=== PATIENT | female | born 1980 | race Two or more races ===

== ENCOUNTER 2019-11-11 10:50 | Outpatient (NON) | payer BC, SELFPAY ==
[2019-11-11 23:03] LABS: SARS-CoV-2 RNA PCR Negative
== END 2019-11-11 10:51 ==
PROVIDERS: PCP Family Medicine; Visit Provider Family Medicine
DX: R50.9 Fever, unspecified (principal); Z20.828 Contact with and (suspected) exposure to other viral communicable diseases
CPT/HCPCS: 87635; C9803; U0003

== ENCOUNTER 2021-03-03 07:46 | Outpatient (CLI) | payer BC, SELFPAY ==
--- NOTE | ~2021-03-03 | MM_ITS ---
EXAMINATION: MM screening marianne BI w juanito HISTORY: Screening mammogram TECHNIQUE: Craniocaudal and mediolateral oblique 3-D tomosynthesis images were obtained and synthetic 2-D images were generated. Bilateral rotated lateral cc views. CAD analysis was submitted and interp reted. COMPARISON: No prior mammogram is available for comparison at this institution. BREAST PARENCHYMAL COMPOSITION: The breasts are almost entirely fatty. FINDINGS: There is no evidence of suspicious mass, calcification, or architectural distortion to sugg est malignancy in either breast. There has been no suspicious interval change. IMPRESSION: 1. No mammographic evidence of malignancy. 2. Recommend routine screening mammography in one year. BI-RADS Category 1: Negative Reviewed, dictated and finalized at location A.
== END 2021-03-03 07:47 | disposition home or self-care (01) ==
LOC: ANHIMG 07:47
PROVIDERS: PCP Family Medicine; Visit Provider Family Medicine
DX: Z12.31 Encounter for screening mammogram for malignant neoplasm of breast (principal)
CPT/HCPCS: 77063; 77067

== ENCOUNTER 2021-06-15 15:17 | Emergency (ER) | payer BC, SELFPAY ==
--- NOTE | ~2021-06-15 | US_ITS ---
EXAMINATION: US venous doppler [facility] EXAM DATE: 06/15/2021 17:56 INDICATION: Left leg pain. TECHNIQUE: Multiple grayscale, color flow and Doppler images of the left lower extremity deep venous system were obtained and reviewed. There is no prior study for comparison. FINDINGS: The left common femoral, femoral and profunda veins demonstrate normal color flow, respirat ory variation, augmentation and compressibility. Compressibility, color flow confirmed within the le ft popliteal, posterior tibial, peroneal, and greater saphenous veins. IMPRESSION: 1. No left lower extremity deep venous thrombosis. Reviewed, dictated and finalized at location G. ONS ADVISOR
--- NOTE | ~2021-06-15 | XR_ITS ---
EXAMINATION: XR knee LT 3V EXAM DATE: 06/15/2021 18:03 INDICATION: Injury 2 weeks ago left calf pain posteriorly. TECHNIQUE: Three projections of the left knee. There is no prior study for comparison. FINDINGS: No evidence osteochondral defect or joint body in the left knee joint. There are no acute fractures or dislocations identified. There is no subcutaneous gas. The soft tissue is unremarkabl e. There are no radiopaque foreign bodies. IMPRESSION: 1. Unremarkable XR knee LT 3V exam. Reviewed, dictated and finalized at location G. TUTOR
[2021-06-15 15:29] VITALS: BP 156/116; PULSE 108; RESP 18; TEMP 37.3; O2SAT 97
--- NOTE | 2021-06-15 18:02 | PC.NURSE ---
Pt at testing a this time.
[2021-06-15] MEDS: HYDROcodone/acetaminophen (*CRX) 5-325 MG TABLET 1 TAB PO (18:06)
--- NOTE | 2021-06-15 18:26 | ED.GENADULT ---
HPI - General Adult General Chief complaint: Extremity Injury, Lower Stated complaint: Left Leg Pain Time Seen by Provider: 06/15/21 16:59 Source: patient, family and RN notes reviewed Mode of arrival: ambulatory Limitations: no limitations History of Present Illness HPI narrative: Patient is a 41-year-old female who presents to emergency department for evaluation of posterior left knee pain calf pain that 9 days ago began with pain patient notes that the pain began after she had landed awkwardly on the leg. Pain began as a cramping pain to the posterior aspect of the knee and calf region which has been present off and on she saw her primary care for this and is scheduled for MRI tomorrow she presents today concerned about possible blood clot with increasing pain today worse with weightbearing and activity. Denies radicular symptoms or paresthesias presents nondistressed Related Data Allergies Allergy/AdvReac Type Severity Reaction Status Date / Time amoxicillin Allergy Panic Verified 06/07/21 10:00 attacks NSAIDS (Non-Steroidal Allergy Swelling Verified 06/07/21 10:00 Anti-Inflamma Review of Systems Review of Systems: All systems reviewed & are unremarkable except as noted in HPI and below PMFSH Past Medical History Medical History HELLP (hemolytic anemia/elev liver enzymes/low platelets in ) 2012 Family History Family History Father Kidney disease Heart disease FHx: cancer of prostate Mother Hypothyroidism Social History Social History Alcohol intake: current Substance use: never Gender identity (if verbalized by the patient): Female Exam Narrative: GENERAL: Well-appearing, well-nourished, and in no acute distress. HEAD: Normocephalic, atraumatic. EYES: PERRLA and EOMI. ENT: Nares clear, no rhinorrhea or epistaxis. Mucous membranes moist. CHEST: Clear to auscultation. No respiratory distress. No wheezes rales or rhonchi HEART: Regular rate and rhythm. No murmur heard. Normal peripheral pulses. EXTREMITIES: Normal range of motion. No edema. Tenderness of the posterior aspect of the left knee and calf where there is slight swelling on the lateral aspect of the calf remainder of extremity nontender no deformity SKIN: Warm, dry, no rash. NEURO: No focal deficits. Alert and oriented x3. Neurovascularly intact. Capillary refill less than 2 seconds PSYCH: Normal mood and affect. Course Course Emergency Course: Patient presented was evaluated negative ultrasound negative x-ray imaging will have MRI tomorrow patient is afebrile nontoxic-appearing nondistressed no signs of neurovascular compromise compartment tissues are soft ABCs and vital signs intact and stable patient aware of case findings treatment plan and diagnosis she will be discharged with Saud wrap and crutches Vital Signs Vital signs: Vital Signs Temperature 99.2 F 06/15/21 15:29 Pulse Rate 108 H 06/15/21 15:29 Respiratory Rate 18 06/15/21 15:29 Blood Pressure 156/116 H 06/15/21 15:29 Pulse Oximetry 97 06/15/21 15:29 Temperature 99.2 F 06/15/21 15:29 Pulse Rate 108 H 06/15/21 15:29 Respiratory Rate 18 06/15/21 15:29 Blood Pressure 156/116 H 06/15/21 15:29 Pulse Oximetry 97 06/15/21 15:29 Medical Decision Making MDM Narrative Medical decision making narrative: Patients injury or pain is consistent with musculoskeletal etiology. No signs of neurological or vascular compromise on exam. Compartments and tisues are soft without signs of compartment syndrome. Pain is felt appropriate for further evaluation on an outpatient basis. Vital Signs Vital Signs: Vital Signs Temperature 99.2 F 06/15/21 15:29 Pulse Rate 108 H 06/15/21 15:29 Respiratory Rate 18 06/15/21 15:29 Blood Pressure 156/116 H 06/15/21 15:29 Puls
[2021-06-15 18:50] VITALS: BP 150/104; PULSE 100; RESP 16; O2SAT 97
== END 2021-06-15 18:50 | disposition home or self-care (01) ==
PROVIDERS: Emergency Provider Emergency Medicine; PCP Family Medicine
DX: M79.662 Pain in left lower leg (principal)
CPT/HCPCS: 73562; 93971; 99284; A9270

== ENCOUNTER 2021-06-16 06:50 | Outpatient (CLI) | payer BC, SELFPAY ==
--- NOTE | ~2021-06-16 | MR_ITS ---
EXAMINATION: MR knee LT wo con DATE: 06/16/2021 08:21 INDICATION: Unspecified strain of muscle and tendon presenting with 2 weeks of posterior left knee an d calf pain. TECHNIQUE: Magnetic resonance imaging (MRI) of the left knee was performed without intravenous contra st. Sequences included coronal PD-weighted FSE, coronal PD-weighted FS FSE, sagittal T2-weighted FSE , sagittal PD-weighted FS FSE and axial PD weighted fat saturated FSE. COMPARISON: None. FINDINGS: Medial compartment: Medial meniscus is normal. Small region of partial-thickness chondral fissuring at the medial tibial plateau along the base of the intercondylar eminence. Mild partial-thickness cartilage loss with subc hondral surface regularity at the central weightbearing medial femoral condyle. Lateral compartment: Lateral meniscus is normal. Articular cartilage is normal. Patellofemoral compartment: Chondral ulceration and deep fissuring at the inferior aspect of the trochlear groove and medial troc hlea with underlying increased subcortical edema-like marrow signal change. Mild chondral fissuring w ithout degenerative subchondral changes along the inferior margin of the medial patellar facet and mi ld chondral swelling along the inferior aspect of the lateral patellar facet. Ligaments and tendons: Anterior and posterior cruciate ligaments are normal. The medial collateral ligament and fibular abdelrahman ateral ligament complex are normal. Mild distal quadriceps tendinopathy. Patella alexander with evidence a lso likely ratio of 1.45 despite some residual laxity within the patellar tendon. The visualized medi al and lateral hamstring tendons as well as the iliotibial band are normal. Fluid: Physiologic amount of fluid in the joint space. No loose osteochondral bodies identified. Osseous/other: There is some patchy red marrow reexpansion the distal femoral diaphysis. No fracture or pathologic m arrow replacing process. IMPRESSION: 1. 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 2. Patella alexander and mild distal quadriceps tendinopathy. Reviewed, dictated and finalized at location A. HOUSE SUPERVISOR
== END 2021-06-16 06:51 | disposition home or self-care (01) ==
PROVIDERS: PCP Family Medicine; Visit Provider Family Medicine
DX: M17.11 Unilateral primary osteoarthritis, right knee (principal); S86.912A Strain of unspecified muscle(s) and tendon(s) at lower leg level, left leg, initial encounter
CPT/HCPCS: 73721

== ENCOUNTER 2021-11-11 14:56 | Outpatient (CLI) | payer BC, SELFPAY ==
--- NOTE | ~2021-11-11 | US_ITS ---
EXAMINATION: US venous doppler [facility] DATE: 11/11/2021 16:04 INDICATION: Lower limb swelling, history of deep venous thrombosis in the popliteal vein TECHNIQUE: Alves scale images without and with compression and Doppler images of the left lower extrem ity veins were obtained. COMPARISON: 06/15/2021 FINDINGS: The popliteal vein is partially compressible. The left common femoral vein, profunda femora l vein, femoral vein, peroneal trunk, posterior tibial veins, and greater saphenous vein are patent. IMPRESSION: 1. Partial thrombosis of the popliteal vein, otherwise patent left lower extremity veins. Reviewed, dictated and finalized at location F. IMPRESSION: 1. Partial thrombosis of the popliteal vein, otherwise patent left lower extrem ity veins.
== END 2021-11-11 14:57 | disposition home or self-care (01) ==
PROVIDERS: PCP Family Medicine; Visit Provider Family Medicine
DX: I82.432 Acute embolism and thrombosis of left popliteal vein (principal)
CPT/HCPCS: 93971

== ENCOUNTER 2022-02-16 09:32 | Outpatient (CLI) | payer BC, SELFPAY | END 2022-02-16 09:33 | disposition home or self-care (01) | LOC: ANHGOSHLAB 09:36 | PROVIDERS: PCP Family Medicine; Visit Provider Family Medicine | DX: Z00.00 Encounter for general adult medical examination without abnormal findings (principal); E66.01 Morbid (severe) obesity due to excess calories; G90.522 Complex regional pain syndrome I of left lower limb | CPT/HCPCS: 99199; 36415 ==

== ENCOUNTER 2023-02-16 09:42 | Outpatient (CLI) | payer BC, SELFPAY ==
[2023-02-16 18:42] LABS: Basophils Percent Auto 0.5 % (0.2-1.2); Eosinophils Absolute Auto 0.1 K/mm3 (0-0.3); Eosinophils Percent Auto 1.2 % (0-4.4); Hematocrit 43.5 % (37.0-47.0); Hemoglobin 13.4 g/dL (12.0-15.0); Immature Granulocyte Absolute 0.02 K/mm3 (0.00-0.031); Immature Granulocyte Percent A 0.3 % (0-0.5); Lymphocytes Absolute Auto 1.77 K/mm3 (0.9-3.2); Lymphocytes Percent Auto 24.3 % (18.3-44.2); Mean Corpuscular HGB Conc 30.8 g/dl (32-36); Mean Corpuscular Hemoglobin 26.5 pg (26-34); Mean Corpuscular Volume 86.1 fl (80-100); Mean Platelet Volume 10.2 fl (7.4-10.4); Monocytes Absolute Auto 0.6 K/mm3 (0.1-0.6); Monocytes Percent Auto 8.4 % (2.6-8.5); Neutrophils Absolute Auto 4.8 K/mm3 (1.3-6.7); Neutrophils Percent Auto 65.3 % (45.5-73.1); Platelet Count Result 340 k/mm3 (150-375); Red Blood Count 5.05 M/mm3 (4.2-5.4); Red Cell Distribution Width 13.1 % (11.5-14.5); White Blood Count 7.3 K/mm3 (4.5-10.0)
[2023-02-16 18:49] LABS: Alanine Aminotransferase 19 U/L (6-35); Albumin Level 4.2 g/dL (3.5-5.1); Alkaline Phosphatase 93 U/L (38-126); Anion Gap 6 mmol/L (8-16); Aspartate Amino Transferase 24 U/L (14-36); Bilirubin,Total 0.5 mg/dL (0.2-1.3); Blood Urea Nitrogen 9 mg/dL (7-17); Calcium 9.1 mg/dL (8.4-10.2); Carbon Dioxide 27 mmol/L (22-30); Chloride 105 mmol/L (98-107); Cholesterol 181 mg/dL (0-200); Estimated Glomerular Filt Rate > 60; Glucose 85 mg/dL (65-110); HDL Direct 45 mg/dL; Potassium 4.5 mmol/L (3.4-5.0); Sodium 138 mmol/L (137-145); Triglycerides 78 mg/dL (<150)
[2023-02-16 19:06] LABS: LDL Cholesterol Direct 105 mg/dL
[2023-02-16 19:10] LABS: Rheumatoid Factor < 12.0 IU/ML (<12)
[2023-02-16 19:50] LABS: Hemoglobin A1C 5.2 % (<5.7)
[2023-02-16 19:58] LABS: Creatinine Urine 232.5 mg/dL
[2023-02-16 20:02] LABS: MALB Creatinine Ratio 11.2 mg/g (0-30); Microalbumin Urine Random 26.1 mg/L (0-16.7)
[2023-02-21 02:40] LABS: ANA Cascade Screen Negative (Negative)
== END 2023-02-16 09:43 | disposition home or self-care (01) ==
LOC: ANHGOSHLAB 09:43
PROVIDERS: PCP Family Medicine; Visit Provider Family Medicine
DX: E66.01 Morbid (severe) obesity due to excess calories (principal); L50.9 Urticaria, unspecified; R73.03 Prediabetes; Z12.39 Encounter for other screening for malignant neoplasm of breast
CPT/HCPCS: 36415; 80053; 80061; 82043; 82607; 83036; 84443; 85025; 86038; 86430

== ENCOUNTER 2023-07-25 14:26 | Outpatient (CLI) | payer BC, SELFPAY ==
--- NOTE | ~2023-07-25 | MR_ITS ---
EXAMINATION: MR brain/brain stem wo con DATE: 07/25/2023 15:19 INDICATION: Syncope and collapse. TECHNIQUE: Magnetic resonance imaging (MRI) of the brain and brainstem was performed without intraven ous contrast. COMPARISON: None. FINDINGS: There is no intracranial hemorrhage, acute infarction, or abnormal intracranial mass lesion . The ventricles are normal in size. The paranasal sinuses are clear. There is a trace left mastoid e ffusion. The orbits are normal. IMPRESSION: 1. Normal brain. Reviewed, dictated and finalized at location A. IMPRESSION: 1. Normal brain.
== END 2023-07-25 14:27 ==
LOC: GOSHIMG 14:27
PROVIDERS: PCP Family Medicine; Visit Provider Nurse Practitioner Family
DX: R55 Syncope and collapse (principal)
CPT/HCPCS: 70551

== ENCOUNTER 2023-07-31 09:22 | Outpatient (NON) | payer BC, SELFPAY | END 2023-07-31 09:23 | disposition home or self-care (01) | LOC: ANHGOSHLAB 09:24 | PROVIDERS: PCP Family Medicine; Visit Provider Nurse Practitioner Family | DX: R53.83 Other fatigue (principal); E66.01 Morbid (severe) obesity due to excess calories; R55 Syncope and collapse | CPT/HCPCS: 82530 ==

== ENCOUNTER 2023-08-01 14:26 | Outpatient (CLI) | payer BC, SELFPAY ==
--- NOTE | 2023-08-01 14:34 | ECHO_ITS ---
Patient Info Name: Aracely Díaz Age: 43 years : 1980 Gender: Female Ht: 68 in Wt: 320 lbs BSA: 2.72 m2 HR: 99 bpm BP: 130 / 75 mmHg Heart Rhythm: Sinus Rhythm Technical Quality: Good Exam Date: 08/01/2023 2:56 PM Exam Location: Echo Lab Patient Status: Outpatient Admit Date: 08/01/2023 Staff Ordering Physician: Elle Van Drapery Seamstress: Jacky Monteiro RDCS Attending Provider: Elle Van Referring Physician: Rehan SERRATO; Exam Type: CA echo dop color flow w con Study Info Indications - syncope and collapse Complete two-dimensional, color flow and Doppler transthoracic echocardiogram is performed with contrast to opacify the left ventricle and to improve the deliniation of the left ventricle endocardial borders. Contrast/Agitated Saline Contrast/Ag. Saline: Definity Amount: 3.00 ml Summary 1. Left ventricular chamber dimension is normal. 2. Left ventricular systolic function is normal, estimated at 65-70%. 3. Right ventricular systolic function is normal. 4. No significant valvular disease. Left Ventricle Left ventricular chamber dimension is normal. Left ventricular systolic function is normal, estimated at 65-70%. There is no increased left ventricular wall thickness. The left ventricular diastolic function is normal. Right Ventricle Right ventricular chamber dimension is normal. Right ventricular systolic function is normal. Left Atria Left atrial chamber dimension is normal. Right Atria Right atrial chamber dimension is normal. Atrial Septum Intact interatrial septum visualized by color flow imaging. Aortic Valve The aortic valve is not well visualized. There is no aortic valve stenosis. There is no aortic valve regurgitation. Pulmonic Valve The pulmonic valve is not well visualized. There is trace pulmonic regurgitation. Mitral Valve There is trace mitral valve regurgitation. The mitral valve annulus is mildly calcified. Tricuspid Valve There is trace tricuspid valve regurgitation. Pericardium/Pleural The pericardium appears epicardial fat pad. There is no pericardial effusion. Inferior Vena Cava Inferior vena cava is not well visualized. Aorta The aortic root size at the sinus of Valsalva is normal. Left Ventricular Outflow Tract Name Value Normal LVOT 2D LVOT Diameter 1.88 cm LVOT Doppler LVOT Peak Gradient 5 mmHg LVOT Mean Gradient 3 mmHg LVOT VTI 22.93 cm LVOT VTI/AV VTI Ratio 0.88 LVOT Stroke Volume 63.83 ml LVOT CO 5.91 l/min LVOT CI 2.17 L/min/m2 Pulmonic Valve Name Value Normal RVOT Doppler RVOT Peak Gradient 2 mmHg PV Doppler
[2023-08-01] MEDS: PERFLUTREN LIPID MICROSPHERES 1.5 ML VIAL DILUTED TO 10 ML TOTAL VOLUME IV PUSH (15:25)
--- NOTE | 2023-08-01 15:53 | IVDEFINITY ---
Prior to administration of IV Definity the patient was educated on the risks and benefits of the imaging enhancing agent including potential adverse side effects. The patient verbalized understanding. Allergies were verified. No exclusion criteria were identified and at least one of the following inclusion criteria were met: 1) physician request, 2) patient technically difficult to image (per the [place] [employer] Echocardi[employer] guidelines of two or more segments not discernable within the apical view), or 3) questionable left ventricular function. ?
== END 2023-08-01 14:27 | disposition home or self-care (01) ==
PROVIDERS: PCP Family Medicine; Visit Provider Nurse Practitioner Family
DX: R53.83 Other fatigue (principal)
CPT/HCPCS: C8929; Q9957

== ENCOUNTER 2023-08-07 08:54 | Outpatient (NON) | payer BC, SELFPAY ==
[2023-08-18 19:46] LABS: Cortisol, Saliva 0.47 mcg/dL
[2023-08-18 19:46] LABS: Cortisol, Saliva 0.62 mcg/dL
== END 2023-08-07 08:55 | disposition home or self-care (01) ==
LOC: ANHGOSHLAB 08:56
PROVIDERS: PCP Family Medicine; Visit Provider Nurse Practitioner Family
DX: R53.83 Other fatigue (principal); E66.01 Morbid (severe) obesity due to excess calories; R55 Syncope and collapse
CPT/HCPCS: 82530

== ENCOUNTER 2025-02-24 08:46 | Outpatient (CLI) | payer BC, SELFPAY ==
--- OUTSIDE RECORDS SUMMARY | 2025-02-24 09:05 | XMS_ITS | Clinical Summary ---
Author Organization [facility] Building [address] [place] [id number] Care Team Providers Care Per Diem Registered Nurse Name Role Phone Serena Torres MD Primary Care Provider + Jyoti Barry DO Unavailable [phone] Blank Mays MD PhD Unavailable [phone] Allergies Active Allergy Reactions Criticality Noted Date Comments Amoxicillin Anxiety Low 07/05/2017 Causes anxiety Pregabalin Swelling Medium 10/12/2023 Metformin Nausea & Vomiting High 02/22/2024 Prednisone Swelling Medium 08/05/2021 Medications cetirizine (ZyrTEC) 10 mg tablet Take 1 tablet (10 mg total) by mouth daily after dinner Active Wegovy 2.4 mg/0.75 mL auto-injectorI ndications:Adam ght Loss Management for Obese Patient (BMI >= 30) Inject 2.4 mg under the skin every 7 days monday11/08/19 24 Active magnesium glycinate 100 mg tablet Take 200 mg of elemental magnesium by mouth early intervention specialist before breakfast Active vitamin D3/vitamin K2, MK4, (K2 PLUS D3 ORAL) Take 1 tablet by mouth early intervention specialist before breakfast Active multivitamin tablet Take 1 tablet by mouth early intervention specialist before breakfast Active UNABLE TO FINDIndication s:nerve supplement Take 1 each by mouth early intervention specialist before breakfast Med Name: Nervie Supplement - nerve supplement Active acetaminophen (TYLENOL) 500 mg tablet Take 2 tablets (1,000 mg total) by mouth every 6 (six) hours 120 tablet 03/15/20 24 Active gabapentin (NEURONTIN) 800 mg tabletIndicati ons:Neuropathi c Pain Take 1 tablet (800 mg total) by mouth 3 (three) times a day 270 capsule 3 07/10/19 25 026 Active tiZANidine (ZANAFLEX) 4 mg tabletIndicati ons:Muscle Spasm Take 1 tablet (4 mg total) by mouth nightly 90 tablet 07/10/[address] (CYMBALTA) 60 mg capsuleIndicat ions:Neuropath ic Pain,neuropath ic pain Take 1 capsule (60 mg total) by mouth 2 (two) times a day 180 capsule 02/05/20 25 Active baclofen (LIORESAL) 5 mg tabletIndicati ons:Muscle spasm of left calf Take 1 tablet (5 mg total) by mouth 2 (two) times a day Start with 0.5-1 tab qhs x1wk, can increase to 1 tab BID 180 tablet 02/05/20 25 026 Active nortriptyline (PAMELOR) 25 mg capsule TAKE 1 CAPSULE BY MOUTH EVERY DAY AT BEDTIME 05/21/[address] (CYMBALTA) 30 mg capsuleIndicat ions:Neuropath ic pain TAKE 1 CAPSULE(30 MG) BY MOUTH TWICE DAILY 60 capsule 11 10/09/19 25 025 Discontinued(Re order) Active Problems Problem Noted Date Diagnosed Date Lesion of left tibial nerve 07/10/2024 Muscle spasm of left calf 07/10/2024 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 ([place] [place] [address] [place] [address] Blank Mays MD PhD Muscle spasm of left calf (Primary Dx); Neuropathic pain Discharge Disposition: Discharge to home or self care from Last 3 Months Surgical History Surgery Date Site/Laterality Comments SECTION 05/15/2012 - 05/14/2013 GALLBLADDER SURGERY 05/15/2023 - 06/14/2023 Medical History Medical History Date Comments GERD (gastroesophageal reflux disease) DVT, lower extremity (HCC) 2023 Left Fatigue Family History Medical History Relation Name Comments Cancer Father Heart disease Father Diabetes Sister Anesthesia problems Neg Hx Relation Name Status Comments Father Sister Social History Tobacco Use Types Packs/Day Years Used Date Smoking Tobacco: Former Cigarettes 0.3 6 2 000 - 2006 Smokeless Tobacco: Never Tobacco Cessation:Counseling Given: Not Answered Alcohol Use Standard Drinks/Week Comments Never 0 (1 standard drink = 0.6 oz pur e alcohol) Hunger Vital Sign Answer Date Recorded Within the past 12 months, y ou worried that your food would run out before you got the money to buy more. Never true 11/30/19 24 Within the past 12 months, t he food you bought just didn't last and you didn't have money to get more. Never true 11/30/2023 AUDIT-C Answer Date Recorded Q1: How often do you have a drink containing alcohol? Never 02/04/2025 Q2: How many drinks containi ng alcohol do you have on a typical day when you are drinking? Patient does not drink Q3: How often do you have si x or more drinks on one occasion? Never 02/04/2025 Personal Safety Answer Date Recorded Have you ever been in or are you currently in a harmful physical or emotional relationship or is someone making you feel afraid or unsafe? 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 Gender Identity Not on file Sexual Orientation Not on file Obstetrics History Last Filed Vital Signs Vital Sign Reading Time Taken Comments Blood Pressure 157/94 02/04/2025 3:02 PM CDT 111 Pulse 84 02/04/2025 3:02 PM CDT Temperature 36.3 C (97.3 F) 02/04/2025 3:02 PM CDT Respiratory Rate 16 02/04/2025 3:02 PM CDT Oxygen Saturation 98% 02/04/2025 3:02 PM CDT ra Inhaled Oxygen Concentration - - Weight 137.9 kg (304 lb) 02/04/2025 3:02 PM CDT Height 172.7 cm (5' 8) 02/04/2025 3:02 PM CDT Body Mass Index 46.22 02/04/2025 3:02 PM CDT Plan of Treatment Health Maintenance Due Date Last Done Comments Breast Cancer Screening-Mammogram 1980 Cervical Cancer Screening 1980 Depression Screening 1980 Hepatitis C Screening 1980 Varicella Vaccines (1 of 2 - 13+ 2-dose series) 1994 Hepatitis B Screening 1999 Regular Well Visit/Exam 18-64 1999 HPV Vaccines (1 - 3-dose SCDM series) 2008 Covid-19 Vaccine ( - 2024- season) 2025 04/16/2021, 08/24/2020, 07/27/2020 Influenza Vaccine (#1) 2025 3, 02/16/2022, 02/18/2021, Additional history exists DTaP/Tdap/Td Vaccine (3 - Td or Tdap) 09/25/2029 09/26/2019, 10/07/2016 Pneumococcal vaccine <65 Aged Out No longer eligible based on patient's age to complete this topic Goals Goal Patient Goal Type Associated Problems Recent Progress Patient-Stated? Author CCM Chronic Pain Care Plan Chronic Care Management On track(2024 3:12 PM CDT) No Richa Chan, RN Note: Problem: Chronic Pain Goals: 1. Minimize further functional decline 2. Maximize quality of life 3. Control pain Strategies: - Activity/exercise program recommendation - Conservative stepwise pain medicine strategy with multi-disciplinary approach - Recommend healthy lifestyle strategies and compensatory methods as needed Insurance [facility] Care Teams Per Diem Registered Nurse Relationship Specialty Start Date End Date Serena Torres MD PCP - General Family Medicine 07/26/21 Jyoti Barry DO Physical Medicine and Rehabilitation 08/05/21 Blank Mays MD PhD [id number] [place] [address] Referring Physician Anesthesiology 12/15/23
--- OUTSIDE RECORDS SUMMARY | 2025-02-24 09:05 | XMS_ITS | Encounter Summary ---
Author Organization [facility] Healthcare Address [address] [place] [address] Care Team Providers Care Insurance Biller Name Role Phone Serena Torres MD Primary Care Provider + Jyoti Barry DO Unavailable [phone] Blank Mays MD PhD Unavailable [phone] Reason for Visit * Reason Onset Date Comments PMC Preprocedure 10/27/2023 Encounter Details Date Type Department Care Team (Late st Contact Info) Description 10/27/2023 Telephone [facility] [place] [facility] [address] [facility] [address] [place], [place] [id number] Blank Mays MD PhD [address] [facility] [id number] [place] [address] [facility] Preprocedure Social History Tobacco Use Types Packs/Day Years Used Date Smoking Tobacco: Former Cigarettes Personal Safety Answer Date Recorded Getting School Help Needed Not on file 07/09 Comments Unknown Sex and Gender Information Value Date Recorded Sex Assigned at Not on file 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 Gender Identity Not on file Sexual Orientation Not on file documented as of this encounter Plan of Treatment Not on file documented as of this encounter Goals Goal Patient Goal Type Associated Problems [...] lifestyle strategies and compensatory methods as needed documented as of this encounter Visit Diagnoses Not on filedocumented in this encounter Care Teams Insurance Biller Relationship Specialty Start Date End Date Serena Torres MD PCP - General Family Medicine 07/26/21 Jyoti Barry DO Physical Medicine and Rehabilitation 08/05/21 Blank Mays MD PhD [id number] [place] [address] Referring Physician Anesthesiology 12/15/23 documented as of this encounter
--- OUTSIDE RECORDS SUMMARY | 2025-02-24 09:05 | XMS_ITS | Clinical Summary ---
Author Organization [facility] Address [facility] [place] [address] Care Team Providers Care Casing Man Name Role Phone Serena Torres MD Unavailable [phone] Serena Torres MD Primary Care Provider [phone] Allergies No known active allergies Medications gabapentin (NEURONTIN) 400 MG capsule Take 1 capsule (400 mg total) by mouth 4 (four) times daily. 2 Active WEGOVY 2.4 mg/dose injection (PEN) Inject 2.4 mg into the skin once a week. Wednesdays 3 Active ondansetron (ZOFRAN-ODT) 4 MG disintegrating tablet Take 1 tablet (4 mg total) by mouth every 8 (eight) hours as needed for Nausea. 20 tablet 4 Active HYDROcodone-acetam inophen (NORCO) 5-325 MG tabletIndications: Acute Pain < 7 Day Supply Take 1 tablet by mouth every 6 (six) hours as needed for Pain. Indications: Acute Pain < 7 Day Supply 15 tablet 4 Active Active Problems Problem Noted Date Diagnosed Date Cholecystitis 05/20/2023 Social History Tobacco Use Types Packs/Day Years Used Date Smoking Tobacco: Never Smokeless Tobacco: Never Tobacco Cessation:Counseling Given: Not Answered Alcohol Use Standard Drinks/Week Comments Never 0 (1 standard drink = 0.6 oz pur e alcohol) [facility] Utilities Answer Date Recorded In the past 12 months has th e electric, gas, oil, or water company threatened to shut off services in your home? No 05/20/2023 Humiliation, Afraid, Rape, and Kick questionnair e Answer Date Recorded Within the last year, have y ou been afraid of your partner or ex-partner? No 05/20/2023 Within the last year, have y ou been humiliated or emotionally abused in other ways by your partner or ex-partner? No Within the last year, have y ou been kicked, hit, slapped, or otherwise physically hurt by your partner or ex-partner? No 05/20/2023 Within the last year, have y ou been raped or forced to have any kind of sexual activity by your partner or ex-partner? No 05/20/2023 Overall Financial Resource Strain (CARDIA) Answe r Date Recorded How hard is it for you to pa y for the very basics like food, housing, medical care, and heating? Not hard at all 05/20/2023 Hunger Vital Sign Answer Date Recorded Within the past 12 months, y ou worried that your food would run out before you got the money to buy more. Never true 05/20/19 24 Within the past 12 months, t he food you bought just didn't last and you didn't have money to get more. Never true 05/20/2023 PRAPARE - Transportation Answer Date Re corded In the past 12 months, has l ack of transportation kept you from medical appointments or from getting medications? No 10/2023 In the past 12 months, has l ack of transportation kept you from meetings, work, or from getting things needed for daily living? No 05/20/2023 Housing Stability Vital Sign Answer Giorgi e Recorded In the last 12 months, was t here a time when you were not able to pay the mortgage or rent on time? No 05/20/2023 In the last 12 months, how many places have you lived? 1 05/20/2023 In the last 12 months, was t here a time when you did not have a steady place to sleep or slept in a nursing home (including now)? 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 Sexual Orientation Straight 04/10/2022 8: 06 PM LONG HAUL TRUCK DRIVER Last Filed Vital Signs Vital Sign Reading Time Taken Comments Blood Pressure 148/88 05/21/2023 7:46 AM LONG HAUL TRUCK DRIVER Pulse 87 05/21/2023 7:46 AM LONG HAUL TRUCK DRIVER Temperature 36.8 C (98.2 F) 05/21/2023 7:46 AM LONG HAUL TRUCK DRIVER Respiratory Rate 18 05/21/2023 7:46 AM LONG HAUL TRUCK DRIVER Oxygen Saturation 98% 05/21/2023 7:46 AM LONG HAUL TRUCK DRIVER Inhaled Oxygen Concentration - - Weight 141.8 kg (312 lb 9.8 oz) 05/20/2023 5:09 AM LONG HAUL TRUCK DRIVER Height 172.7 cm (5' 8) 05/20/2023 5:09 AM LONG HAUL TRUCK DRIVER Body Mass Index 47.53 05/20/2023 5:09 AM LONG HAUL TRUCK DRIVER Plan of Treatment Health Maintenance Due Date Last Done Comments Cervical Cancer Screening Pa p Smear (Age 30 to 64) Every 3 Years 1981 Annual Physical 1984 Hepatitis C 1999 Hepatitis B Vaccines (1 of 3 - 19+ 3-dose series) 2000 HPV Vaccines (1 - 3-dose SCD M series) 2008 Cervical Cancer Screening Pa p with HPV Testing (Age 30 to 64) Every 5 Years 2011 Cervical Cancer Screening wi th HPV 2011 Mammogram Screening 2021 COVID-19 Vaccine (4 - 2024-2 6 season) 2025 04/16/2021, 08/24/2020, 07/27/2020 Influenza Adult (#1) 2025 02/16/2022, 02/18/2021, 03/13/2013 DTaP, Tdap and Td Vaccines ( 3 - Td or Tdap) 09/25/2029 09/26/2019, 10/07/2016 Meningococcal B Vaccine Aged Out No l onger eligible based on patient's age to complete this topic Meningococcal Vaccine Aged Out No venkata brandin eligible based on patient's age to complete this topic Pneumococcal Vaccine: Pediatrics (0 to 5 Years) and At-Risk Patients (6 to 49 Years) Aged Out No longer eligible b ased on patient's age to complete this topic RSV Immunizations Under 20 Months Aged Out No longer eligible b ased on patient's age to complete this topic Insurance [facility] Advance Directives * Full Code (Latest Code Status on File) Date Activated Date Inactivated Comments 05/20/2023 5:18 AM 05/21/2023 1:00 PM Care Teams Casing Man Relationship Specialty Start Date End Date Serena Torres MD [facility] [address] PCP - General 10/12/22 Serena Torres MD FAMILY PRACTICE 03/21/22
--- OUTSIDE RECORDS SUMMARY | 2025-02-24 09:05 | XMS_ITS | Encounter Summary ---
Author Organization [facility] Address [facility] [place] [address] Care Team Providers Care Anesthesia Assistant Name Role Phone Serena Torres MD Primary Care Provider Dayton Torres MD Primary Care Provider [phone] Serena Torres MD Unavailable [phone] Serena Torres MD Primary Care Provider [phone] Encounter Details Date Type Department Care Team (Late st Contact Info) Description 02/23/2003 Abstract [facility] Conversion , Generic Conversion, Social History Tobacco Use Types Packs/Day Years Used Date Smoking Tobacco: Never Assessed Comments Unknown Sex and Gender Information Value Date Recorded Sex Assigned at Not on file Legal Sex Female 11:12 PM CDT Gender Identity Female 04/10/2022 8:06 PM 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 Sexual Orientation Straight 04/10/2022 8: 06 PM 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 documented as of this encounter Plan of Treatment Not on file documented as of this encounter Visit Diagnoses Not on filedocumented in this encounter Additional Health Concerns Infection Onset Date Last Indicated Resolved Time Influenza - Seasonal 03/28/2022 03/28/2022 023 12:33 AM 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
--- OUTSIDE RECORDS SUMMARY | 2025-02-24 09:05 | XMS_ITS | Clinical Summary ---
Author Organization [facility] [employer] Address [address] [place] [address] Care Team Providers Care Working Supervisor Name Role Phone Serena Torres MD Primary Care Provider [phone] Tamika Ibrahim MD Unavailable Source Comments [facility],non-owned Affiliates and Associated Physician Practices is amultiple site organization consisting of ambulatory clinics and hospital sitesin [place], [place], [place] and [place]. This disclosure is being madepursuant to the Care Everywhere program and may not contain all information available regarding this patient. Last updated 18.[facility] [employer] Allergies Active Allergy Reactions Criticality Noted Date Comments Amoxicillin Other 07/05/2017 Causes anxiety Nsaids Swelling 03/19/2021 Medications * Be aware that medications may not be up to date on this document. Alwaysverify current medications with the patient. azithromycin (ZITHROMAX) 250 MG tablet 2 tabs po x 1 day, then 1 tab days 2-5 6 tablet 8 Active Additional Information Patient not taking.Reported on 03/19/2021 Active Problems Problem Noted Date Diagnosed Date choroid plexus cysts a ffecting antepartum care of mother 09/04/2012 Overview (09/04/2012): bilateral Pyelectasis 09/04/2012 Overview (09/04/2012): bilateral Obesity complicating peripregnancy, antepartum 0 09/04/2012 Immunizations Immunization Administration Dates Next Due INFLUENZA VACCINE 02/12/2021 TDAP (7yrs+) 10/07/2016 Social History Tobacco Use Types Packs/Day Years Used Date Smoking Tobacco: Never Smokeless Tobacco: Never Comments No Sex and Gender Information Value Date Recorded Sex Assigned at Not on file Legal Sex Female 11:12 AM CDT Gender Identity Not on file Sexual Orientation Not on file Last Filed Vital Signs Vital Sign Reading Time Taken Comments Blood Pressure 180/113 03/19/2021 9:45 AM CDT Pulse 125 03/19/2021 9:45 AM CDT Temperature 36.7 C (98.1 F) 03/19/2021 9:45 AM CDT Respiratory Rate 16 07/05/2017 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 [employer]ODUCTION Oxygen Saturation 98% 03/19/2021 9:45 AM CDT Inhaled Oxygen Concentration - - Weight 158.5 kg (349 lb 8 oz) 03/19/2021 9:45 AM CDT Height 172.7 cm (5' 8) 03/19/2021 9:45 AM CDT Body Mass Index 53.14 03/19/2021 9:45 AM CDT Plan of Treatment Health Maintenance Due Date Last Done Comments LIPID TESTING 1981 MAMMOGRAM 1981 HIV SCREENING 1996 HEPATITIS C SCREENING 02/25/1999 HEPATITIS B VACCINE (1 of 3 - 19+ 3-dose series) 2000 HPV VACCINE (1 - 3-dose SCDM series) 2008 SCREENING FOR DIABETES 03/19/2021 DEPRESSION SCREENING 05/15/2024 COVID-19 VACCINE (1 - 2023-2 5 season) 2025 INFLUENZA VACCINE (#1) 2025 02/12/2021 DTAP/TDAP/TD VACCINES (2 - T d or Tdap) 10/07/2026 10/07/2016 ZOSTER VACCINE (1 of 2) 2031 HIB VACCINE Aged Out No longer eligi ble based on patient's age to complete this topic MENINGOCOCCAL (Group B) VACC INE SHARED DECISION-MAKING Aged Out No longer eligibl e based on patient's age to complete this topic MENINGOCOCCAL GROUPS A/C/Y/W VACCINE Aged Out No longer eligible b ased on patient's age to complete this topic PNEUMOCOCCAL VACCINE Aged Out No long er eligible based on patient's age to complete this topic Insurance [facility] Care Teams Working Supervisor Relationship Specialty Start Date End Date Serena Torres MD [address] [place] [address] PCP - General 12/24/20 Tamika Ibrahim MD [address] [place] [place], [place] Resident Student Resident 03/19/21
--- OUTSIDE RECORDS SUMMARY | 2025-02-24 09:05 | XMS_ITS | Encounter Summary ---
Author Organization [facility] Address [facility] [place] [address] Care Team Providers Care Registered Client Associate Name Role Phone Serena Torres MD Primary Care Provider [phone] Dayton Torres MD Primary Care Provider [phone] Serena Torres MD Unavailable [phone] Serena Torres MD Primary Care Provider [phone] Encounter Details Date Type Department Care Team (Late st Contact Info) Description 10/08/2021 [employer] Corporation[employer] Message Enc [facility] Physical Therapy [address] [place] [address] Diana Marin, 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 No / Unsure 10/08/2021 3:09 PM CDT documented as of this encounter Plan of Treatment Not on file documented as of this encounter Visit Diagnoses Not on filedocumented in this encounter Additional Health Concerns Infection Onset Date Last Indicated Resolved Time Influenza - Seasonal 03/28/2022 03/28/2022 023 12:33 AM TELESALES SPECIALIST documented as of this encounter Care Teams Registered Client Associate Relationship Specialty Start Date End Date Serena Torres MD PCP - General FAMILY PRACTICE 08/02/21 03/20/22 Dayton Torres MD [address] [place] [address] [address] [place], [place] [id number] PCP - [facility] PRACTICE 03/21/22 10/11/22 Serena Torres MD [address] [place] [address] [address] [place], [place] [id number] PCP - General 10/12/22 Serena Torres MD FAMILY PRACTICE 03/21/22 documented as of this encounter
[2025-02-24 13:23] LABS: Alanine Aminotransferase 14 U/L (6-35); Albumin Level 4.0 g/dL (3.5-5.1); Alkaline Phosphatase 107 U/L (38-126); Anion Gap 10 mmol/L (4-12); Aspartate Amino Transferase 37 U/L (14-36); Bilirubin,Total 0.5 mg/dL (0.2-1.3); Blood Urea Nitrogen 10 mg/dL (7-17); Calcium 9.1 mg/dL (8.4-10.2); Carbon Dioxide 21 mmol/L (22-30); Chloride 107 mmol/L (98-107); Cholesterol 183 mg/dL (0-200); Estimated Glomerular Filt Rate > 60; Glucose 72 mg/dL (65-110); HDL Direct 49 mg/dL; Potassium 4.9 mmol/L (3.4-5.0); Sodium 138 mmol/L (137-145); Total Protein 7.6 g/dL (6.3-8.2); Triglycerides 106 mg/dL (<150)
[2025-02-24 13:59] LABS: Hemoglobin A1C 5.1 % (<5.7)
[2025-02-24 14:08] LABS: Thyroid Stimulating Hormone 2.040 uIU/mL (0.465-4.680)
== END 2025-02-24 08:47 | disposition home or self-care (01) ==
LOC: ANHGOSHLAB 08:46
PROVIDERS: PCP Student in an Organized Health Care Education/Training Program; Visit Provider Student in an Organized Health Care Education/Training Program
DX: R73.03 Prediabetes (principal); E66.01 Morbid (severe) obesity due to excess calories
CPT/HCPCS: 36415; 80053; 80061; 83036; 84443